=== PATIENT | male | born 1990 | race Two or more races ===

== ENCOUNTER 2024-03-06 10:13 | Emergency (ER) | payer MEDICAID ==
[~2024-03-06] VITALS: Ht 175.3 cm; Wt 66.0 kg
[2024-03-06 10:40] VITALS: O2SAT 100
[2024-03-06 12:03] LABS: BASOPHILS % 0.7 % (0.0-2.0); EOSINOPHILS % 1.8 % (0.0-5.0); HEMATOCRIT. 44.3 % (42.0-52.0); HEMOGLOBIN. 15.3 g/dL (14.0-18.0); LYMPHOCYTES % 15.3 % (20.0-50.0); MEAN CORPUSCULAR HEMOGLOBIN 29.5 pg (28.0-32.0); MEAN CORPUSCULAR HGB CONC 34.5 g/dL (31.0-37.0); MEAN CORPUSCULAR VOLUME 85.7 fL (80.0-94.0); MEAN PLATELET VOLUME 10.6 fl (7.4-10.4); MONOCYTES % 5.2 % (2.0-8.0); PLATELET 181 x1000/uL (130-400); RED BLOOD CELL COUNT 5.17 mill/uL (4.7-6.1); RED CELL DISTRIBUTION WIDTH 13.4 % (11.6-14.6); WHITE BLOOD COUNT 5.3 x1000/uL (4.5-11.0)
[2024-03-06 12:07] LABS: CHLORIDE 101 mEq/L (98-107); POTASSIUM 4.7 mEq/L (3.5-5.1); SODIUM 137 mEq/L (136-145)
[2024-03-06 12:08] LABS: CARBON DIOXIDE 29 mEq/L (21-32)
[2024-03-06 12:09] LABS: CALCIUM 10.2 mg/dL (8.7-10.4)
[2024-03-06 12:13] LABS: GLUCOSE 265 mg/dL (70-105)
[2024-03-06 12:14] LABS: UREA NITROGEN BLOOD 11 mg/dL (9-23)
[2024-03-06 12:15] LABS: ALANINE AMINOTRANSFERASE 44 IU/L (10-49); ALBUMIN 4.9 g/dL (3.2-4.8); ASPARTATE AMINOTRANSFERASE 27 IU/L (<34)
[2024-03-06 12:16] LABS: BILIRUBIN TOTAL 0.4 mg/dL (0.1-1.0); PROTEIN TOTAL 7.8 g/dL (6.0-8.3)
[2024-03-06] MEDS: DEXAMETHASONE 4MG/ML 1ML VIAL IV ONE (18:18)
[2024-03-06] MEDS: GADOTERATE MEGLUMINE 5 MMOL/10 ML VIAL IV ONE (21:11)
[2024-03-07] MEDS: DEXAMETHASONE 4MG/ML 1ML VIAL IV ONE (05:40)
[2024-03-07 12:22] VITALS: BP 112/72; PULSE 76; RESP 16; TEMP 97.9
== END 2024-03-07 13:53 | disposition short-term general hospital (02) ==
LOC: ER 10:13 → CANBEDREQ 18:33 → ER 03-07 13:53
DX: M54.50 Low back pain, unspecified (principal); R53.1 Weakness; E11.9 Type 2 diabetes mellitus without complications
CPT/HCPCS: 80053; 85025; 36415; 72156; 72157; 72158; 96374; 99285; 96376; A9577; J1100 ×2; Z7610 ×2